=== PATIENT | male | born 2000 | race Caucasian/White ===

== ENCOUNTER 2024-10-20 13:32 | Inpatient (IN) | payer BC, SELFPAY ==
[2024-10-20] VITALS (7 sets, daily range): BP systolic 110–143; BP diastolic 82–94; BMI 28.2; BMI 27.6
[2024-10-20 09:29] LABS: % Basophils 0.5 % (0-2); % Eosinophils 0.1 % (0-6); % Immature Granulocytes 0.6 % (0-0.5); % Lymphocytes 10.7 % (20.5-51.1); % Monocytes 9.4 % (1.7-9.3); % Neutrophils 78.7 % (42.2-75.2); Absolute Basophils 0.1 10^3/uL (0-0.2); Absolute Immature Granulocytes 0.1 10^3/uL (0-0.05); Absolute Lymphocytes 1.4 10^3/uL (1.2-3.4); Absolute Monocytes 1.2 10^3/uL (0.1-0.6); Hematocrit 51.5 % (39.0-52.0); Hemoglobin 17.8 g/dL (13.0-18.0); Mean Corp Hgb Conc. 34.6 g/dL (33.0-37.0); Mean Corpuscular Hgb 27.6 pg (27.0-31.0); Mean Corpuscular Volume 79.7 fL (80.0-94.0); Mean Platelet Volume 9.2 fL (7.4-10.4); Nucleated Red Blood Cells % 0 % (-); Platelet Count 227 10^3/uL (130-400); Red Blood Cell Count 6.46 10^6/uL (4.70-6.10); Red Cell Dist. Width 12.7 % (11.5-14.5); White Blood Cell Count 12.6 10^3/uL (4.8-10.8)
[2024-10-20 09:54] LABS: Lactic Acid 0.9 mmol/L (0.7-2.0)
[2024-10-20 10:00] LABS: ALT (SGPT) 25 U/L (0-50); AST (SGOT) 24 U/L (17-59); Albumin 5.1 g/dl (3.5-5.0); Alkaline Phosphatase 73 U/L (38-126); Blood Urea Nitrogen 12 mg/dl (9-20); Calcium 10.5 mg/dl (8.4-10.2); Carbon Dioxide 22 mmol/L (22-30); Chloride 103 mmol/L (98-107); Glucose 121 mg/dl (70-99); Potassium 3.9 mmol/L (3.5-5.1); Sodium 139 mmol/L (135-145); Total Bilirubin 1.5 mg/dl (0.2-1.3); eGFR > 60.00
--- NOTE | 2024-10-20 10:32 | ED.GENMED ---
History of Present Illness
General
Chief Complaint: Swelling
Source: patient and family
Time Seen by Provider: 10/20/24 10:05
History of Present Illness
History of Present Illness:
24-year-old male with past medical history of anxiety presenting to the ER with family for evaluation of left-sided facial swelling that began yesterday, acutely worsening this morning, went to local urgent care yesterday and was given a
prescription for Augmentin (has taken 2 total doses of the Augmentin) but upon awakening this morning with increased swelling, took 2 Aleve around 8 AM and was brought to the ER after being found to have a fever. Patient does note some mild
discomfort but states currently pain is under control. Patient states overall unsure as to how this started. Denies any trauma and had no prodromal symptoms prior to the initial swelling starting. Patient denies any history of similar. Family
does note that patient previously had wisdom teeth out a few years ago and this was without any complications. He follows up with his dentist biannually and has not had any problems during these dental visits. Social history was otherwise
noncontributory.
Past History
Past History
ED Past Medical History: Psychiatric
ED Past Surgical History: None
Social History
Tobacco: Non-smoker
Alcohol: None
Drug: None
Personal: Single
Living: with family
Review of Systems
Review of Systems
All Other Systems: ROS reviewed and negative except as documented in HPI and ROS
Phy Exam
Physical Exam
Physical Exam:
GENERAL: Alert , in no apparent distress
HEAD/FACE: Normocephalic atraumatic, there is significant left-sided facial edema, erythema and warmth. Most of the swelling is concentrated around the left maxillary region extending towards the mandible as well as the inferior orbit with
overlying erythema.
EYE: conjunctiva clear, no proptosis, EOMI
NECK: Supple, no large lymphadenopathy
ENT: o/p clr, mmm. Good dentition, no periapical abscess appreciated, no trismus or stridor, tolerating secretions
CARDIAC: Tachycardic rate and rhythm
LUNGS: Clear breath sounds bilaterally, no acute respiratory distress
NEUROLOGICAL: Alert and oriented
SKIN: Warm and dry, skin intact.
MUSCULOSKELETAL: well perfused.
PSYCH: Normal and appropriate interaction.
Scores
Heart Failure Risk
Heart Failure Risk Score: Not Applicable
Heart Score for Chest Pain Patients
STEMI patient?: Not applicable
Withdrawal Assessment of Alcohol
Withdrawal Assessment Completed?: Not applicable
Course
Orders/Labs/Results
Orders:
Orders
10/20/24 09:02
Complete Blood Count/With Diff Urgent
Comprehensive Metabolic Panel Urgent
Lactic Acid Q4H
Comment: ON ICE, CANCEL 2ND ORDER IF FIRST LACTIC ACID LEVEL <2
Blood Culture Urgent
BHARAT Source: Blood/Venous
Specimen Description:
10/20/24 10:32
CT Facial Bones W/ Iv Contrast Urgent
Comment:
Reason For Exam: left facial edema,erythema, fever
10/20/24 10:39
Ampicillin/Sulbactam 3 G [Unasyn] 3 gm 0.9% Sodium Chloride 100 ml [Nss] 100 ml IV NOW
10/20/24 10:41
Blood Culture Urgent
BHARAT Source: Blood/Venous
Specimen Description:
10/20/24 12:45
Ketorolac [Toradol] 15 mg IV NOW STA
Abnormal Lab Results
10/20/24
09:02
WBC 12.6 H 10^3/uL
(4.8-10.8)
RBC 6.46 H 10^6/uL
(4.70-6.10)
MCV 79.7 L fL
(80.0-94.0)
Abs Immat Gran (auto) 0.1 H 10^3/uL
(0-0.05)
Absolute Neuts (auto) 10.0 H 10^3/uL
(1.4-6.5)
Absolute Monos (auto) 1.2 H 10^3/uL
(0.1-0.6)
Immature Gran % 0.6 H %
(0-0.5)
Neutrophils % 78.7 H %
(42.2-75.2)
Lymphocytes % 10.7 L %
(20.5-51.1)
Monocytes % 9.4 H %
(1.7-9.3)
Glucose 121 H mg/dl
(70-99)
Calcium 10.5 H mg/dl
(8.4-10.2)
Total Bilirubin 1.5 H mg/dl
(0.2-1.3)
Albumin 5.1 H g/dl
(3.5-5.0)
10/20/24 09:02
10/20/24 09:02
Vital Signs
Initial and Last Documented VS:
Initial Vital Signs
Temp Pulse Resp BP Pulse Ox
100.0 F 132 18 143/87 97
10/20/24 08:49 10/20/24 08:49 10/20/24 08:49 10/20/24 08:49 10/20/24 08:49
Last Documented Vital Signs
Temp Pulse Resp BP Pulse Ox
98.9 F 111 20 138/94 94
10/20/24 10:03 10/20/24 10:15 10/20/24 10:03 10/20/24 10:03 10/20/24 10:15
MDM/Problems Addressed
Differential Diagnosis Includes:
Facial abscess/cellulitis, preseptal cellulitis, orbital cellulitis, sinusitis, parotitis, sialolithiasis
MDM/Problems Addressed:
24-year-old male presenting to the ER for evaluation of left-sided facial pain, erythema, edema and fever. Symptoms started yesterday. Went to urgent care and was given a prescription for Augmentin for which she has taken 2 total doses. Symptoms
with minimal improvement. Found to have a low-grade fever here, at time of my exam fever improved. Patient remains with tachycardia. Labs were initiated on arrival which shows a leukocytosis of 12,000. Chemistry largely unremarkable. Will
obtain CT of the facial region with IV contrast. Unasyn ordered. Plan for admission
*Radiology
Radiology exam reviewed: radiology read reviewed
*Pulse Oximetry
Patient hypoxic: no
*Food Tray As[employer]er Interpretation
Rate: tachycardiac
Rhythm: sinus
*Critical Care Note
Total Time (30-74mins, 75-104mins- exclusive of procedures): Not Applicable
Patient Management
Discussion with other providers: Hospitalist
Escalation/DeEscalation of care consider admission/obs:
Patient CT scan shows left maxillary abscess with severe left-sided facial cellulitis. Hospitalist team notified and accepts for continued evaluation and treatment.
ED Attending Note
-
Portions of this chart may have been created with voice recognition software.� Occasional wrong word or��sound alike� substitutions may have occurred due to the inherent limitations of voice recognition software.
Discharge Plan
Departure
Patient Disposition: Admit
Date of Disposition: 10/20/24
Time of Disposition: 12:45
Presentation/result/management discussed w/ accepting MD/DO: Hospitalist
Discharge Problem:
Cellulitis and abscess of face
Prescriptions:
No Action
naproxen sodium [Aleve] 220 mg Tablet
440 mg PO BIDPRN PRN (Reason: mild pain)
hydroxyzine HCl 25 mg tablet
50 mg PO BID
amoxicillin-pot clavulanate 875-125 mg tablet
1 tab PO BID
Referrals:
Hector Gao MD [Family Provider] -
Interventions
Interventions:
*Risk Screen - Suicide Last Done: 10/20/24 08:49
*General Assessment Last Done: 10/20/24 08:49
*Neglect/Abuse Screening Last Done: 10/20/24 10:03
ED- Fall Risk Assessment Last Done: 10/20/24 10:03
*ED COVID-19 Vaccine History Last Done: 10/20/24 08:49
ED- Cardiac Assessment Last Done: 10/20/24 10:03
ED- Pulmonary Assessment Last Done: 10/20/24 10:03
ED-Skin Assessment Last Done: 10/20/24 10:03
Discharge Date and Time
Print Language: MOZAMBICAN
[2024-10-20] MEDS: UNASYN IV ×3 (10:56→21:03)
--- NOTE | 2024-10-20 13:02 | HPS.HSE ---
Family Physician
-
Family Physician: Hector Gao
Chief Complaint
-
Lt facial swelling
History of Present Illness
24M Non smoker, HX anxiety seen at ER:
- left-sided facial swelling that began yesterday, acutely worsening this morning
- went to local urgent care yesterday and was given a prescription for Augmentin (has taken 2 total doses of the Augmentin) - upon awakening this morning with increased swelling, took 2 Aleve around 8 AM and was brought to the ER after being found
to have a fever.
ROS
Denies any trauma and had no prodromal symptoms prior to the initial swelling starting.
Patient denies any history of similar.
Medical History
Past Medical History
Past Medical History: Reports Psychiatric (anxiety )
Past Surgical History: Reports Other (wisdom teeth removal )
Social History
Tobacco: Non-smoker
Alcohol: None
Family History
Family History: Not pertinent
Allergies / Home Medications
Allergies reflects when Allergies were last updated in [facility].
Home Medications with original date entered in [facility]
Allergy/Medication List:
Allergies
Allergy/AdvReac Type Severity Reaction Status Date / Time
No Known Allergies Allergy Verified 10/20/24 08:52
Home Medications
amoxicillin 875 mg-potassium clavulanate 125 mg tablet 1 tab PO BID 10/20/24
hydroxyzine HCl 25 mg tablet 50 mg PO BID 10/20/24
naproxen sodium 220 mg tablet (Aleve) 440 mg PO BIDPRN PRN mild pain 10/20/24
Review of Systems
-
Constitutional: Reports No Symptoms
EENT: Reports See HPI
Respiratory: Reports No Symptoms
Cardiac: Reports No Symptoms
Abdomen/GI: Reports No Symptoms
: Reports No Symptoms
Musculoskeletal: Reports No Symptoms
Skin: Reports No Symptoms
Neurological: Reports No Symptoms
Endocrine: Reports No Symptoms
Hematologic/Lymphatic: Reports No Symptoms
Psych: Reports No Symptoms
Physical Exam
Vital Signs
Vital Signs
Temp Pulse Resp BP Pulse Ox
98.9 F 111 20 138/94 94
10/20/24 10:03 10/20/24 10:15 10/20/24 10:03 10/20/24 10:03 10/20/24 10:15
Physical Exam
General: Well Developed, Well Nourished and No Apparent Distress
HEENT: NormoCephalic, Moist mucous membranes, Atraumatic and Other (Lt sided face swelling )
Respiratory: Clear
Cardiac: S1/S2 and Regular Rhythm; No Murmur or Rub
GI: Soft, Non Tender, Non Distended and Normal Bowel Sounds; No Organomegaly
Rectal: Deferred by Provider
Musculoskeletal: No Clubbing, No Cyanosis and No Edema
Skin: No Rash
Neuro: Nonfocal/grossly intact
Laboratory Results
-
10/20/24 09:02
10/20/24 09:02
Laboratory Results
Lactic Acid Cancelled 10/20/24 13:00
Total Bilirubin 1.5 mg/dl (0.2-1.3) H 10/20/24 09:02
AST 24 U/L (17-59) 10/20/24 09:02
ALT 25 U/L (0-50) 10/20/24 09:02
Alkaline Phosphatase 73 U/L (38-126) 10/20/24 09:02
Data Reviewed
-
CT Scan: Report Reviewed by me
Lab Data: Labs Reviewed by me
Impression/Plan
-
Data
VS
10/20/24
08:49
Temp 100.0 F
Pulse 132
Laboratory Tests
10/20/24
09:02
WBC 12.6 H
Creatinine 0.9
eGFR > 60.00
Glucose 121 H
Calcium 10.5 H
Total Bilirubin 1.5 H
[address] Facial Bones W/ Iv Contrast
Fairly extensive skin thickening and subcutaneous edema within the left face which appears to be secondary to dental disease involving the left third maxillary molar. There appears to be associated subperiosteal abscess measuring 13 mm in length.
Moderate, likely reactive mucosal thickening within the left maxillary sinus.
NO PRIOR hospitalist admission:
ASSESSMENT & PLAN
Severe left facial cellulitis with abscess due to left third maxillary subperiosteal abscess
Associated sepsis ( Fever, ST and hi WCC)
- BCx sent
- full liquid diet and ADAT
- agree with IV Unasyn
- PRN Analgesia
- f/u BCx , WCC and T
- OP follow up with Dentist once cellulitis is resolved
DVT Px: SCD at rest
Full code
IP MS
Hospitalist discussed case with patient and parents at bed side
[2024-10-20] MEDS: TORADOL 15 MG IV (13:03)
--- NOTE | 2024-10-20 15:09 | EDRN ---
this RN called the receiving unit and notified them that paper report was going to be tubed up
[2024-10-20] MEDS: NSS 1000 IV (15:56)
[2024-10-20] MEDS: NAPROSYN 500 MG PO (20:01)
[2024-10-20] MEDS: ATARAX 50 MG PO (20:02)
[2024-10-20 20:16] LABS: Urine Albumin 2+ (Neg - Trace); Urine Bilirubin Negative (Negative); Urine Character Clear (Clear); Urine Color Yellow; Urine Glucose Negative (Negative); Urine Ketone Negative (Negative); Urine Leukocyte Negative (Negative); Urine Nitrite Negative (Negative); Urine Occult Blood Negative (Negative); Urine Specific Gravity 1.015 (<1.030); Urine Urobilinogen Negative (Neg - 1+)
[2024-10-20 20:25] LABS: Urine Red Blood Cell 0-2 /HPF (0-2); Urine White Cell 0-2 /HPF (0-5)
[2024-10-21] MEDS: UNASYN IV ×3 (03:00→15:42)
[2024-10-21] MEDS: NSS 1000 IV (03:00)
[2024-10-21 06:59] LABS: Hematocrit 45.7 % (39.0-52.0); Hemoglobin 15.3 g/dL (13.0-18.0); Mean Corp Hgb Conc. 33.5 g/dL (33.0-37.0); Mean Corpuscular Hgb 27.4 pg (27.0-31.0); Mean Corpuscular Volume 81.8 fL (80.0-94.0); Mean Platelet Volume 9.4 fL (7.4-10.4); Platelet Count 192 10^3/uL (130-400); Red Blood Cell Count 5.59 10^6/uL (4.70-6.10); Red Cell Dist. Width 12.8 % (11.5-14.5); White Blood Cell Count 8.4 10^3/uL (4.8-10.8)
[2024-10-21 07:25] LABS: ALT (SGPT) 52 U/L (0-50); AST (SGOT) 34 U/L (17-59); Albumin 3.7 g/dl (3.5-5.0); Alkaline Phosphatase 63 U/L (38-126); Blood Urea Nitrogen 12 mg/dl (9-20); Calcium 9.5 mg/dl (8.4-10.2); Carbon Dioxide 27 mmol/L (22-30); Chloride 106 mmol/L (98-107); Estimated Creatinine Clearance 118 ml/min; Glucose 100 mg/dl (70-99); Potassium 4.2 mmol/L (3.5-5.1); Sodium 140 mmol/L (135-145); Total Bilirubin 1.1 mg/dl (0.2-1.3); Total Protein 6.1 g/dl (6.3-8.2); eGFR > 60.00
--- NOTE | 2024-10-21 07:26 | W.PN.HOSP.TC ---
Today's Communication/Plan
-
Discharge today
Assessment / Plan
Assessment / Plan
Physical Exam
General: Well Developed, Well Nourished and No Apparent Distress
HEENT: Normocephalic, Moist mucous membranes, Atraumatic and Other (Lt sided face swelling, associated with very mild erythema and very mild tenderness. Oral mucosa without pus or significant lesions)
Respiratory: Clear to Auscultation Bilaterally
Cardiac: S1/S2 and Regular Rhythm
GI: Soft, Non Tender, Non Distended and Normal Bowel Sounds
Musculoskeletal: No Cyanosis and No Edema
Skin: Warm. Dry.
Neuro: Alert. Awake. Cranial Nerves 2 through 12 grossly intact bilaterally. Strength and sensation grossly intact bilaterally.
Assessment/Plan
Left facial cellulitis with abscess due to left third maxillary subperiosteal abscess
Sepsis
Leukocytosis - RESOLVED
- Blood cultures with no growth to date
- IV Unasyn while inpatient
- Discharge on Augmentin 875 mg BID for ~14 days
- PRN Analgesia
- Follow-up with [facility] Dr. Volodymyr Steinberg outpatient
Tachycardia
- Suspected due to anxiety, patient's father reported patient is anxious and would like to go home
DVT PPx: SCDs
Code Status: Full code
I spoke to patient and his dad at bedside today; all questions and concerns were answered to satisfaction.
More than 30 minutes spent in discharge including
Final examination of the patient
Summarizing hospital stay
Instructions for continuing care to all relevant caregivers
Preparation of discharge records, prescriptions, and referral forms
Total time spent (in minutes): 37
Anticipated Discharge: Today
Subjective/Interval History
-
Date of Service: October 21, 2024
Patient was seen and examined, and his father was present in the room at the time of attempted patient encounter. Patient and his father reported that patient's symptoms have significantly improved, patient's father said patient is anxious, did not
get any sleep, and that it would be better for patient to go home today.
Objective Data
-
Labs:
Laboratory Results
10/21/24
06:37
WBC 8.4
Hgb 15.3
Hct 45.7
Plt Count 192
Sodium 140
Potassium 4.2
Chloride 106
Carbon Dioxide 27
BUN 12
Creatinine 1.0
Glucose 100 H
Calcium 9.5
Total Bilirubin 1.1
AST 34
ALT 52 H
Alkaline Phosphatase 63
Vital Signs:
Vital Signs
Temp Pulse Resp BP Pulse Ox
98.7 F 103 14 123/84 99
10/20/24 23:21 10/20/24 23:21 10/20/24 23:21 10/20/24 23:21 10/20/24 23:21
I&O
10/20/24 10/21/24 10/22/24
06:59 06:59 06:59
Intake Total 2319 / 0
Balance 2319 / 232
[2024-10-21 08:22] VITALS: BP 112/77
[2024-10-21] MEDS: ATARAX 50 MG PO (08:41)
[2024-10-21] MEDS: PROTONIX 40 MG PO (08:41)
--- NOTE | 2024-10-21 13:51 | CM ---
CM met with pt and father
Per chart review, plan for dc today
Pt resides with his father in a [facility]
Indep at baseline and denies use of DMEs or financial insecurities
PCP- Hector Gao
Rx- [facility] [id number]
Discharge Disposition- home, no needs, father transport
[2024-10-21 15:34] VITALS: BP 113/70
== END 2024-10-21 16:42 | disposition home or self-care (01) | DRG 872 ==
LOC: 1 ACUTE 13:32
PROVIDERS: ADMITTING PHYSICIAN Internal Medicine; ATTENDING PHYSICIAN Hospitalist; EMERGENCY PHYSICIAN Emergency Medicine; FAMILY PHYSICIAN Family Medicine
DX: A41.9 Sepsis, unspecified organism (principal); L03.211 Cellulitis of face; L02.01 Cutaneous abscess of face; F41.9 Anxiety disorder, unspecified
CPT/HCPCS: 70487; 80053; 81003; 81015; 83605; 85025; 85027; 87040; 96365; 96375; 99284; Q9967